=== PATIENT | female | born 1955 | race Caucasian/White ===

== ENCOUNTER → 2020-04-25 | Outpatient (CLI) | payer SELFPAY | LOC: LABNPT 07:08 | PROVIDERS: ATTEND Emergency Medicine | DX: Z01.812 Encounter for preprocedural laboratory examination (principal); Z20.822 Contact with and (suspected) exposure to COVID-19 | CPT/HCPCS: 87635 ==

== ENCOUNTER → 2020-05-06 | Outpatient (CLI) | payer SELFPAY | LOC: LABNPT 05:17 | PROVIDERS: ATTEND Emergency Medicine | DX: Z53.8 Procedure and treatment not carried out for other reasons (principal) ==

== ENCOUNTER → 2020-05-11 | Outpatient (CLI) | payer OTHER | LOC: LABNPT 08:49 | PROVIDERS: ATTEND Emergency Medicine | DX: Z01.812 Encounter for preprocedural laboratory examination (principal); Z20.822 Contact with and (suspected) exposure to COVID-19 | CPT/HCPCS: 87635 ==

== ENCOUNTER → 2020-07-21 | Outpatient (CLI) | payer OTHER ==
[~2020-07-21] MED LIST: GADOBUTROL 10 MMOL/10 ML (GADAVIST) VIAL IV ONE
--- NOTE | 2020-07-21 12:29 | Diagnostic Imaging Report ---
PROCEDURE: MRI lumbar spine with and without contrast. TECHNIQUE: Multiplanar, multisequence MRI of the lumbar spine was performed with and without contrast. INDICATION: Low back pain. History of lumbar spine surgery in 2017. COMPARISON: None available. FINDINGS: There are five lumbar-type vertebral bodies for the purposes of this report. Mild left apex lumbar curvature. Grade 1 retrolisthesis of L1 on L2. Vertebral body heights are preserved. Postoperative findings and laminectomies at L3 and L4. Modic type II degenerative endplate changes at L3-L5. Schmorl's nodes in the inferior endplates of L3 and L4. No suspicious osseous enhancement. No abnormal signal in the conus which terminates at L1-L2. Normal morphology of the cauda equina without enhancement. There is an indeterminate multiloculated cystic mass in the left pelvis which is partially visualized but measures up to 3.9 x 2.5 cm. L1-L2: Annular disc bulge, ligamentous hypertrophy and facet arthropathy all result in severe spinal canal stenosis. Severe left and moderate right neural foraminal narrowing. L2-L3: Annular disc bulge and facet arthropathy result in moderate spinal canal and severe right lateral recess narrowing. Severe bilateral neural foraminal narrowing. L3-L4: Spinal canal is decompressed well. Annular disc bulge and facet arthropathy result in severe right lateral recess narrowing. Severe right and moderate left neural foraminal narrowing. L4-L5: Facet arthropathy and disc osteophyte complex result in severe bilateral lateral recess narrowing. The spinal canal is decompressed well. Severe bilateral neural foraminal narrowing. L5-S1: Facet arthropathy results in mild bilateral lateral recess narrowing. Moderate left and mild right neural foraminal narrowing. No spinal canal narrowing. IMPRESSION: 1. Postoperative findings of laminectomies at L3 and L4. 2. Spondylotic changes result in severe spinal canal stenosis at L1-L2, moderate at L2-L3. 3. Multilevel high-grade lateral recess and neural foraminal narrowing detailed above level by level. 4. Indeterminate multiloculated cystic mass in the left pelvis measuring up to 3.9 cm is partially visualized. No prior imaging is available for comparison. This may be ovarian in origin. If this is of unknown clinical identity, recommend further evaluation with CT. Dictated by: Dictated on workstation # [id number]
== END ==
LOC: RAD 08:50
PROVIDERS: ATTEND Nurse Practitioner
DX: M48.061 Spinal stenosis, lumbar region without neurogenic claudication (principal); M51.16 Intervertebral disc disorders with radiculopathy, lumbar region; M47.817 Spondylosis without myelopathy or radiculopathy, lumbosacral region; M85.68 Other cyst of bone, other site; Z98.890 Other specified postprocedural states
CPT/HCPCS: 72158

== ENCOUNTER → 2020-12-16 | Outpatient (CLI) | payer OTHER ==
--- NOTE | 2020-12-16 18:52 | Diagnostic Imaging Report ---
PROCEDURE: MRI lumbar spine. TECHNIQUE: Multiplanar, multisequence MRI of the lumbar spine was performed without contrast. DATE: December 16, 2020. COMPARISON: MRI of the lumbar spine July 21, 2020. INDICATION: 65-year-old female, low back pain. FINDINGS: There is no evidence of a diffuse marrow infiltrating or replacing process. There is no evidence of a diffuse marrow infiltrating or replacing process. The visualized cord and conus medullaris are unremarkable and terminate at the L1-L2 level. There is mild disc height loss at L1-L2. There is mild disc height loss at L2-L3. There is moderate to severe disc height loss at L3-L4 and L4-L5. There are multilevel endplate degenerative related changes. T12-L1: There is diffuse disc bulge. There is mild to moderate narrowing of the right lateral recess. There are bilateral facet degenerative changes without ligamentum flavum hypertrophy. There is prominence of the posterior epidural fat. There is no foraminal narrowing. There is moderate spinal stenosis. L1-L2: There is a large diffuse disc bulge. There is severe narrowing of the bilateral lateral recesses. There are bilateral facet degenerative changes. There is ligamentum flavum hypertrophy. There is mild bilateral foraminal narrowing. There is severe spinal canal stenosis. L2-L3: There is diffuse disc bulge eccentric to the right. There is moderate to severe narrowing of the right lateral recess and moderate narrowing of the left lateral recess. There are right greater than left facet degenerative changes. There is severe right and moderate left foraminal narrowing. There is moderate spinal canal stenosis. L3-L4: There is diffuse disc bulge. There is a right paracentral disc protrusion which nears the descending right L4 nerve root. There are bilateral laminectomy changes. There are right greater than left facet degenerative changes. There is severe right and moderate left foraminal narrowing. There is no spinal stenosis. L4-L5: There is diffuse disc bulge. There is moderate narrowing of the left lateral recess. There are facet degenerative changes. There are bilateral laminectomy changes. There is moderate to severe bilateral foraminal narrowing. There is no spinal canal stenosis. L5-S1: There is no disc bulge. There are right greater than left facet degenerative changes. There is mild left foraminal narrowing. There is no spinal canal stenosis. IMPRESSION: 1. Multilevel disc and facet degenerative changes of the lumbar spine with multilevel foraminal and spinal stenosis as described level by level above. 2. No focal concerning bone lesion or acute compression fracture. Dictated by: Dictated on workstation # [id number]
== END ==
LOC: RAD 13:29
PROVIDERS: ATTEND Pediatrics
DX: M51.36 Other intervertebral disc degeneration, lumbar region (principal); M47.817 Spondylosis without myelopathy or radiculopathy, lumbosacral region; M48.07 Spinal stenosis, lumbosacral region; M51.26 Other intervertebral disc displacement, lumbar region; Z98.890 Other specified postprocedural states
CPT/HCPCS: 72148

== ENCOUNTER → 2020-12-20 | Outpatient (CLI) | payer OTHER ==
--- NOTE | 2020-12-20 16:52 | Diagnostic Imaging Report ---
EXAMINATION: 1. Magnetic resonance imaging of the pelvis and left hip without contrast 2. Magnetic resonance imaging of the right hip without contrast. DATE: December 20, 2020. COMPARISON: None. INDICATION: 65-year-old female, bilateral hip pain. TECHNIQUE: 1. Magnetic Resonance Imaging sequences were performed of the pelvis and additional dedicated noncontrast MRI sequences of the left left hip without contrast. 2. Dedicated noncontrast MRI sequences of the right hip were obtained without contrast. FINDINGS: TENDONS AND MUSCLES: The gluteus jm muscles and their origins and insertions are intact bilaterally. The tendons and muscles of the greater trochanter - gluteus minimus, piriformis and gluteus medius - are intact bilaterally. Both common hamstring attachments on the ischial tuberosities are intact and the extensor muscles of the thigh are intact. The visualized portions of the flexors and adductor muscles of the thigh and their attachments on the pelvis and hips are intact. Both iliopsoas and iliacus muscles are intact. The bilateral iliopsoas tendons are intact. HIPS AND SACROILIAC JOINTS: There is a tear involving the right hip anterosuperior labrum. There is no associated paralabral cyst. There is moderate generalized cartilage loss of the right hip. There is subchondral cystic change in the right acetabulum. There is no identified fluid-filled labral tear or paralabral cyst on the left. There is mild osteoarthritis of the left hip. There is no large hip joint effusion. The sacroiliac joints are unremarkable. LUMBAR SPINE: There is severe disc height loss with endplate degenerative change at L3-L4 and L4-L5. There is otherwise limited assessment of the lumbar spine. BONE: There is no acute fracture, bone contusion, or evidence of osteonecrosis. BURSAE AND SOFT TISSUES: There are cystic adnexal lesions, likely reflecting ovarian cysts bilaterally. The uterus is not seen and likely is surgically absent. IMPRESSION: 1. Tear of the right hip anterosuperior labrum without paralabral cyst. Moderate to severe osteoarthritis of the right hip. 2. Mild osteoarthritis of the left hip. 3. No hip joint effusion. 4. Intact muscles and tendons. 5. No acute fracture, bone contusion, or evidence of osteonecrosis. 6. Disc degenerative changes at L3-L4 and L4-L5. Dictated by: Dictated on workstation # [id number]
== END ==
LOC: RAD 15:30
PROVIDERS: ATTEND Pediatrics
DX: M16.0 Bilateral primary osteoarthritis of hip (principal)
CPT/HCPCS: 73721